=== PATIENT | male | born 1970 | race Caucasian/White ===

== ENCOUNTER 2020-06-11 01:43 | Emergency (ER) | payer OTHER ==
[~2020-06-11 01:43] MED LIST: BUSPIRONE HCL15 M1 PO; CHLORZOXAZONE500 MG PO; GABAPENTIN800 MG PO; IBUPROFEN800 M1 PO; ONDANSETRON ODT4 MG SL; ZOFRAN4 MG PO
== END 2020-06-11 07:05 | disposition home or self-care (01) ==
LOC: FER 01:43
DX: S01.81XA Laceration without foreign body of other part of head, initial encounter (principal); S01.111A Laceration without foreign body of right eyelid and periocular area, initial encounter; F10.10 Alcohol abuse, uncomplicated; Y90.8 Blood alcohol level of 240 mg/100 ml or more; Z23 Encounter for immunization; W19.XXXA Unspecified fall, initial encounter; Y92.89 Other specified places as the place of occurrence of the external cause
CPT/HCPCS: 36415; 70450; 72125; 90471; 90715; G0480

== ENCOUNTER 2020-07-24 00:15 | Emergency (ER) | payer OTHER ==
[2020-07-24] MEDS ORDERED: NORCO 5-325 TA1 EACH PO (02:32)
[2020-07-24] MEDS ORDERED: MEDROL 4MG DOSEP4 MG PO (02:32)
== END 2020-07-24 02:45 | disposition home or self-care (01) ==
LOC: FER 00:15
DX: M54.42 Lumbago with sciatica, left side (principal); M54.16 Radiculopathy, lumbar region; Z87.81 Personal history of (healed) traumatic fracture; Z88.1 Allergy status to other antibiotic agents
CPT/HCPCS: 72100; 73502; 96372; J1040; J1885

== ENCOUNTER 2020-12-31 23:05 | Emergency (ER) | payer OTHER ==
[~2020-12-31 23:05] MED LIST changes: +MEDROL 4MG DOSEP4 MG PO; +NORCO 5-325 TA1 EACH PO
[2021-01-01] MEDS ORDERED: BACLOFEN 10MG T10 MG PO (04:19)
[2021-01-01] MEDS ORDERED: HYDROCODON-ACE1 EAC2 PO (04:19)
[2021-01-01] MEDS ORDERED: MEDROL 4MG DOSEP4 MG PO (04:19)
[2021-01-01] MEDS ORDERED: IBUPROFEN800 M1 PO (04:19)
== END 2021-01-01 04:33 | disposition home or self-care (01) ==
LOC: FER 23:05
DX: S16.1XXA Strain of muscle, fascia and tendon at neck level, initial encounter (principal); S00.93XA Contusion of unspecified part of head, initial encounter; F43.10 Post-traumatic stress disorder, unspecified; Z98.890 Other specified postprocedural states; Z88.1 Allergy status to other antibiotic agents; Z79.899 Other long term (current) drug therapy; W22.8XXA Striking against or struck by other objects, initial encounter; Y92.69 Other specified industrial and construction area as the place of occurrence of the external cause; Y99.0 Civilian activity done for income or pay

== ENCOUNTER 2021-03-08 14:21 | Emergency (ER) | payer OTHER ==
[~2021-03-08 14:21] MED LIST changes: +BACLOFEN 10MG T10 MG PO; +HYDROCODON-ACE1 EAC2 PO
[2021-03-08 17:18] LABS: BASOPHIL 1.7 % (0-2); EOSINOPHIL 4.5 % (0-5); HCT 45.7 % (42.0-52.0); HGB 15.9 g/dl (13.2-18.0); LYMPHOCYTE 25.5 % (15-48); MCH 33.8 pg (25.0-31.0); MCHC 34.8 g/dL (32.0-36.0); MCV 97.2 fL (78.0-100.0); MONOCYTE 17.7 % (0-12); MPV 10.8 fL (6.0-9.5); NEUTROPHIL 50.4 % (41-80); NRBC 0; PLT 147 K/uL (150-400); RDW 12.8 % (11.5-14.0); WBC 4.2 K/uL (4.0-10.5)
[2021-03-08 17:29] LABS: BUN/CREAT RATIO (CALC) 18.1 RATIO; CREATININE 0.72 mg/dL (0.67-1.17); POTASSIUM 3.1 mmol/L (3.5-5.1)
== END 2021-03-08 19:40 | disposition home or self-care (01) ==
LOC: FER 14:21
PROVIDERS: Nurse Practitioner Family
DX: B34.9 Viral infection, unspecified (principal); Z88.1 Allergy status to other antibiotic agents; Z20.822 Contact with and (suspected) exposure to COVID-19
CPT/HCPCS: 36415; 80048; 85025; 99283; U0002

== ENCOUNTER 2021-03-19 11:38 | Emergency (ER) | payer OTHER ==
[2021-03-19 12:25] LABS: EOSINOPHIL 0.5 % (0-5); HCT 49.9 % (42.0-52.0); HGB 17.3 g/dl (13.2-18.0); LYMPHOCYTE 18.6 % (15-48); MCH 33.7 pg (25.0-31.0); MCHC 34.7 g/dL (32.0-36.0); MCV 97.1 fL (78.0-100.0); MONOCYTE 11.7 % (0-12); MPV 10.1 fL (6.0-9.5); NRBC 0; PLT 129 K/uL (150-400); RBC 5.14 M/uL (4.70-6.00); WBC 6.1 K/uL (4.0-10.5)
[2021-03-19 12:30] LABS: INR 1.04 (0.9-1.2); PTT 28.1 SECONDS (24.4-34.7)
[2021-03-19 12:32] LABS: D-DIMER 0.78 ug/mLFEU (0.00-0.41)
[2021-03-19 12:48] LABS: LACTIC ACID 7.2 mmol/L (0.4-1.9)
[2021-03-19 12:50] LABS: MONOSPOT (MONONUCLEOSIS) NEGATIVE (NEGATIVE)
[2021-03-19 13:21] LABS: ACETAMINOPHEN (TYLENOL) < 2.0 ug/mL (10.0-30.0); ALBUMIN 4.4 g/dL (3.4-5.0); ALKALINE PHOSHATASE 83 U/L (46-116); ALT 73 U/L (16-63); AST 58 U/L (15-37); BILIRUBIN - TOTAL 1.3 mg/dL (0.2-1.0); BUN 20 mg/dL (7-18); C-REACTIVE PROTEIN < 0.20 mg/dL (<=0.90); CHLORIDE 97 mmol/L (98-107); CO2 (BICARBONATE) 22 mmol/L (21-32); CPK 362 U/L (39-308); FOLIC ACID (SERUM) 4.3 ng/mL (8.6-58.9); GLOBULIN (CALCULATION) 3.4 g/dL; GLUCOSE 97 mg/dL (74-106); MAGNESIUM 2.3 mg/dL (1.8-2.4); PHOSPHORUS 2.5 mg/dL (2.6-4.7); POTASSIUM 3.2 mmol/L (3.5-5.1); TOTAL PROTEIN 7.8 g/dL (6.4-8.2)
[2021-03-19 14:15] LABS: BILIRUBIN 1+ mg/dL (NEGATIVE); BLOOD 1+ Ery/uL (NEGATIVE); CLARITY CLEAR (CLEAR); COLOR YELLOW (YELLOW); GLUCOSE (U) NORMAL (NORMAL); LEUKOCYTES NEGATIVE Leu/uL (NEGATIVE); NITRITE NEGATIVE (NEGATIVE); PROTEIN 2+ mg/dL (NEGATIVE); SPECIFIC GRAVITY >=1.030 (1.001-1.030); UROBILINOGEN 0.2 mg/dL (0.2-1.0)
[2021-03-19 14:25] LABS: AMPHETAMINES NEGATIVE (NEGATIVE); BARBITURATES NEGATIVE (NEGATIVE); ECSTASY (MDMA) NEGATIVE (NEGATIVE); MARIJUANA (THC) NEGATIVE (NEGATIVE); METHADONE NEGATIVE (NEGATIVE); OPIATES NEGATIVE (NEGATIVE); OXYCODONE NEGATIVE (NEGATIVE)
[2021-03-19 14:37] LABS: BACTERIA TRACE; MUCOUS MODERATE; SQUAMOUS EPITHELIAL CELLS RARE
[2021-03-19 17:49] LABS: BUN/CREAT RATIO (CALC) 24.2 RATIO; CREATININE 0.62 mg/dL (0.67-1.17); POTASSIUM 3.5 mmol/L (3.5-5.1)
[2021-03-21 15:11] LABS: LYME IGG/IGM AB <0.91 ISR (0.00-0.90)
[2021-03-22 15:10] LABS: E. CHAFFEENSIS (HME) IGG TITER Negative (Neg:<1:64); E. CHAFFEENSIS (HME) IGM TITER Negative (Neg:<1:20); HGE IGG TITER Negative (Neg:<1:64); HGE IGM TITER Negative (Neg:<1:20)
== END 2021-03-19 18:51 | disposition home or self-care (01) ==
LOC: FER 11:38
PROVIDERS: Emergency Medicine; Emergency Medicine Emergency Medical Services
DX: E87.2 Acidosis (principal); F10.129 Alcohol abuse with intoxication, unspecified; Z88.1 Allergy status to other antibiotic agents; Y90.7 Blood alcohol level of 200-239 mg/100 ml
CPT/HCPCS: 36415; 70450; 71045; 71275; 80048; 80053; 80305; 81001; 82550; 82553; 82607; 82746; 83605; 83735; 84100; 84145; 84439; 84443; 84484; 85025; 85379; 85610; 85730; 86140; 86308; 86618; 86666; 86757; 87040; 93005; G0480; J0696; J1885; J2060; J2405; J2560; J3411; J3475; J7030; J7040; J7120; Q9967